=== PATIENT | male | born 1965 | race African-American/Black ===

== ENCOUNTER 2018-05-23 11:51 | Inpatient (IN) | payer OTHER ==
[2018-05-23 13:42] VITALS: BMI 22.2
--- NOTE | 2018-05-23 14:41 | HP ---
CIWA Score Nausea/Vomitin Muscle Tremors: 2 Anxiety: 2 Agitation: 2 Paroxysmal Sweats: 2 Orientation: 0-Oriented Tacttile Disturbances: 1-Very Mild Itch/Numbness Auditory Disturbances: 1-Very Mild Visual Disturbances: 0-None Headache: 2-Mild CIWA-Ar Total Score: 14 - Admission Criteria OASAS Guidelines: Admission for Medically Managed Detox: Requires at least one of the followin. CIWA greater than 12 2. Seizures within the past 24 hours 3. Delirium tremens within the past 24 hours 4. Hallucinations within the past 24 hours 5. Acute intervention needed for co occurring medical disorder 6. Acute intervention needed for co occurring psychiatric disorder 7. Severe withdrawal that cannot be handled at a lower level of care (continued vomiting, continued diarrhea, abnormal vital signs) requiring intravenous medication and/or fluids 8. Admission ROS S - HPI Chief Complaint: i need help detox from alcohol,cocaine and marijuana Allergies/Adverse Reactions: Allergies Allergy/AdvReac Type Severity Reaction Status Date / Time No Known Allergies Allergy Verified 05/23/18 13:21 History of Present Illness: this 53 years old male with alcohol,cocaine and marijuana dependence seeking detox,withdrawal symptom, last detox C 01/17/11 to 01/22/11 nicotine dependence 4 cigarette 4/day,do not want nicotine replacemant longest sobriety 8 years plan to go to rehab after detox weight loss left craniotomy surgery in 2016 did nit recall the facility etiology unknown low back pain sciatica right ,ambulation with cane bph Exam Limitations: No Limitations - Ebola screening Have you traveled outside of the country in the last 21 days: No (N) Have you had contact with anyone from an Ebola affected area: No Do you have a fever: No - Review of Systems Constitutional: Loss of Appetite, Malaise, Night Sweats, Changes in sleep, Weakness, Unintentional Wgt. Loss EENT: reports: Tearing, Nose Congestion, Other (s/p craniotomy left in 2016 etiology unknown) Respiratory: reports: No Symptoms reported Cardiac: reports: No Symptoms Reported GI: reports: Nausea, Poor Appetite, Abdominal cramping Musculoskeletal: reports: Back Pain, Muscle Pain Neuro: reports: Headache, Tremors Endocrine: reports: No Symptoms Reported Hematology: reports: No Symptoms Reported Psychiatric: reports: No Sypmtoms Reported, Judgement Intact, Mood/Affect Appropiate, Orientated x3 Other Systems: Reviewed and Negative Patient History - Patient Medical History Hx Anemia: No Hx Asthma: No Hx Chronic Obstructive Pulmonary Disease (COPD): No Hx Cancer: No Hx Cardiac Disorders: No Hx Congestive Heart Failure: No Hx Hypertension: No Hx Hypercholesterolemia: No Hx Pacemaker: No HX Cerebrovascular Accident: No Hx Seizures: No Hx Dementia: No Hx Diabetes: No Hx Gastrointestinal Disorders: No Hx Liver Disease: No Hx Genitourinary Disorders: No Hx Sexually Transmitted Disorders: No Hx Renal Disease (ESRD): No Hx Thyroid Disease: No Hx Human Immunodeficiency Virus (HIV): No (2017 last negative) Hx Hepatitis C: No Hx Depression: No Hx Suicide Attempt: No Hx Bipolar Disorder: No Hx Schizophrenia: No Other Medical History: no sucidal,no homicidal,lefr craniotomy in 2016,scitica right,ambulation wi - Patient Surgical History Hx Neurologic Surgery: Yes (left craniotomy in 2016,etiology) - PPD History Previous Implant?: Yes Documented Results: Negative w/o proof Implanted On Prior R Admission?: No PPD to be Administered?: Yes - Smoking Cessation Smoking history: Current every day smoker Have you smoked in the past 12 months: Yes Aproximately how many cigarettes per day: 4 Cigars Per Day: 0 Hx Chewing Tobacco Use: No Initiated information on smoking cessation: Yes 'Breaking Loose' booklet given: 05/23/18 - Substance & Tx. History Hx Alcohol Use: Yes Hx Substance Use: Yes Substance Use Type: Alcohol, Cocaine, Marijuana Hx Substance Use Treatment: Yes ([facility] 01/17/11 to 01/22/11) - Substances abused Alcohol Substance route: Oral Frequency: Daily Amount used: 3 pints of liqur/2 of 6 packs of 12 ozs of beer Age of first use: 16 Date of last use: 05/22/18 Marijuana/Hashish Substance route: Smoking Frequency: Daily Amount used: $50 Age of first use: 15 Date of last use: 05/16/18 Cocaine Substance route: Smoking Frequency: 1-3 times last 30 days Amount used: 50$ Age of first use: 33 Date of last use: 05/13/18 Family Disease History - Family Disease History Family History: Denies Admission Physical Exam BHS - Vital Signs Vital Signs: Vital Signs - 24 hr 05/23/18 05/23/18 13:31 14:26 Pulse Rate 82 82 Respiratory 18 18 Rate Blood Pressure 125/72 125/72 - Physical General Appearance: Yes: Moderate Distress, Tremorous, Irritable, Sweating, Anxious HEENTM: Yes: Normal ENT Inspection, CHAD, Pharynx Normal, Other (s/p left cranitomy in 2016) Respiratory: Yes: Lungs Clear, Normal Breath Sounds, No Respiratory Distress Neck: Yes: Within Normal Limits, Supple, Trachea in good position Breast: Yes: Within Normal Limits Cardiology: Yes: Within Normal Limits, Regular Rhythm, Regular Rate, S1, S2 Abdominal: Yes: Within Normal Limits, Normal Bowel Sounds, Flat, Soft Genitourinary: Yes: Within Normal Limits Back: Yes: Muscle Spasm Musculoskeletal: Yes: Back pain, Muscle Pain, Other (pain in the right leg and foot ambulation with cane) Extremities: Yes: Normal Range of Motion, Tremors Integumentary: Yes: Dry Lymphatic: Yes: Within Normal Limits - Diagnostic (1) Alcohol dependence with uncomplicated withdrawal Current Visit: Yes Status: Acute (2) Cannabis dependence Current Visit: Yes Status: Acute (3) Cocaine abuse Current Visit: Yes Status: Acute (4) History of craniotomy Current Visit: Yes Status: Acute (5) Low back pain Current Visit: Yes Status: Acute (6) Sciatica, right side Current Visit: Yes Status: Acute (7) Use of cane as ambulatory aid Current Visit: Yes Status: Acute (8) Weight loss Current Visit: Yes Status: Acute Cleared for Admission S - Detox or Rehab [facility] Level of Care: Medically Managed Detox Regimen/Protocol: Librium Breathalyzer - Breathalyzer Breathalyzer: 0 Urine Drug Screen - Test Device Lot number: [id number] Expiration date: 01/12/20 - Control Is test valid?: Yes - Results Drug screen NEGATIVE: No Urine drug screen results: THC-Marijuana, CARYN-Cocaine, BAR-Barbiturates, BZO- Benzodiazepines Inpatient Rehab Admission - Rehab Decision to Admit Inpatient rehab admission?: No
[2018-05-23] MEDS ORDERED: MENTHOL/PHENOL 1 EACH UD MM PRN (14:55)
[2018-05-23] MEDS ORDERED: IBUPROFEN 400 MG TABLET (FP) PO PRN (14:55)
[2018-05-23] MEDS ORDERED: MAG HYDROX/AL HYDROX/SIMETH 30 ML UNIT-DOSE CUP PO PRN (14:55)
[2018-05-23] MEDS ORDERED: MAGNESIUM CITRATE 300 ML BOTTLE PO PRN (14:55)
[2018-05-23] MEDS ORDERED: chlordiazePOXIDE HCL 25 MG CAPSULE PO PRN (14:55)
[2018-05-23] MEDS ORDERED: ACETAMINOPHEN 325 MG TABLET (FP) PO PRN (14:55)
[2018-05-23] MEDS ORDERED: hydrOXYzine PAMOATE 25 MG CAPSULE (FP) PO PRN (14:55)
[2018-05-23] MEDS ORDERED: BISMUTH SUBSALICYLATE 262 MG/15 ML BTL PO PRN (14:55)
[2018-05-23] MEDS ORDERED: MELATONIN 5 MG TABLETS PO PRN (14:55)
[2018-05-23] MEDS ORDERED: MAGNESIUM HYDROX 2400MG/30ML ORAL SUSPENSION 30 ML CUP PO PRN (14:55)
[2018-05-23 16:50] LABS: EPI CELLS 2.5 /HPF (0-5/HPF); URINE APPEARANCE CLOUDY; URINE BACTERIA 34.2 /hpf (NEGATIVE); URINE BILIRUBIN NEGATIVE (NEGATIVE); URINE CASTS 130 /hpf (0-8); URINE COLOR DK YELLOW; URINE GLUCOSE (UA) NEGATIVE (NEGATIVE); URINE KETONE TRACE (NEGATIVE); URINE LEUK ESTERASE 2+ (NEGATIVE); URINE NITRITE NEGATIVE (NEGATIVE); URINE PROTEIN NEGATIVE (NEGATIVE); URINE RBC 2 /hpf (0-4); URINE UROBILINOGEN 0.2 mg/dL (0.2-1.0); URINE WBC 88 /hpf (0-5)
[2018-05-23 17:01] LABS: HEMATOCRIT 30.4 % (35.4-49); HEMOGLOBIN 10.1 GM/dL (11.7-16.9); MCH 27.5 pg (25.7-33.7); MCHC 33.3 g/dl (32.0-35.9); MEAN CELL VOLUME 82.5 fl (80-96); MEAN PLT VOLUME 8.9 fl (7.5-11.1); PLATELET COUNT 268 K/MM3 (134-434); RBC 3.68 M/mm3 (4.00-5.60); RDW 15.6 % (11.9-15.9); WHITE BLOOD COUNT 5.8 K/mm3 (4.0-10.0)
[2018-05-23 17:20] LABS: ALBUMIN 3.2 g/dl (3.4-5.0); ALK PHOS 101 U/L (45-117); ANION GAP 6 MMOL/L (8-16); BILIRUBIN,TOTAL 0.8 mg/dL (0.2-1); BLOOD UREA NITROGEN 12 mg/dL (7-18); CALCIUM 9.1 mg/dL (8.5-10.1); CHLORIDE 108 mmol/L (98-107); CO2 27 mmol/L (21-32); CREATININE 0.7 mg/dL (0.55-1.3); GLUCOSE,RANDOM 105 mg/dL (74-106); POTASSIUM 4.3 mmol/L (3.5-5.1); SGOT/AST 18 U/L (15-37); SGPT/ALT 16 U/L (13-61); SODIUM 141 mmol/L (136-145); TOT PROT 7.7 g/dl (6.4-8.2)
[2018-05-23 17:52] LABS: SICKLE CELL SCREEN NEGATIVE (NEGATIVE)
[2018-05-23] MEDS: chlordiazePOXIDE HCL 25 MG CAPSULE PO SCH ×2 (18:01→22:08)
[2018-05-23] MEDS ORDERED: TAMSULOSIN HCL 0.4 MG CAP PO SCH (22:00)
[2018-05-23] MEDS: TAMSULOSIN HCL 0.4 MG CAP PO SCH (22:05)
[2018-05-23] MEDS: THIAMINE HCL 100 MG TABLET (FP) PO SCH (22:22)
[2018-05-24] MEDS: chlordiazePOXIDE HCL 25 MG CAPSULE PO SCH ×4 (05:12→23:15)
[2018-05-24] MEDS: ACETAMINOPHEN 325 MG TABLET (FP) PO PRN (05:13)
--- NOTE | 2018-05-24 09:11 | PN ---
S CIWA - CIWA Score Nausea/Vomitin Muscle Tremors: 2 Anxiety: 2 Agitation: 2 Paroxysmal Sweats: 1-Minimal Palms Moist Orientation: 0-Oriented Tacttile Disturbances: 1-Very Mild Itch/Numbness Auditory Disturbances: 1-Very Mild Visual Disturbances: 0-None Headache: 2-Mild CIWA-Ar Total Score: 13 BHS Progress Note (SOAP) Subjective: alert,irritable,anxious,interrupted sleep,tremor,pain in the back and right leg Objective: 05/24/18 10:47 Vital Signs Temperature 98.2 F 05/24/18 09:14 Pulse Rate 105 H 05/24/18 09:14 Respiratory Rate 16 05/24/18 09:14 Blood Pressure 147/87 05/24/18 09:14 O2 Sat by Pulse Oximetry (%) ekg nsr with sinus arrhythmia qt/qtc 388/424/ Laboratory Last Values WBC 5.8 K/mm3 (4.0-10.0) 05/23/18 14:45 RBC 3.68 M/mm3 (4.00-5.60) L 05/23/18 14:45 Hgb 10.1 GM/dL (11.7-16.9) L 05/23/18 14:45 Hct 30.4 % (35.4-49) L 05/23/18 14:45 MCV 82.5 fl (80-96) 05/23/18 14:45 MCH 27.5 pg (25.7-33.7) 05/23/18 14:45 MCHC 33.3 g/dl (32.0-35.9) 05/23/18 14:45 RDW 15.6 % (11.9-15.9) 05/23/18 14:45 Plt Count 268 K/MM3 (134-434) 05/23/18 14:45 MPV 8.9 fl (7.5-11.1) 05/23/18 14:45 Sickle Cell Screen Negative (NEGATIVE) 05/23/18 14:45 Sodium 141 mmol/L (136-145) 05/23/18 14:45 Potassium 4.3 mmol/L (3.5-5.1) 05/23/18 14:45 Chloride 108 mmol/L (98-107) H 05/23/18 14:45 Carbon Dioxide 27 mmol/L (21-32) 05/23/18 14:45 Anion Gap 6 MMOL/L (8-16) L 05/23/18 14:45 BUN 12 mg/dL (7-18) 05/23/18 14:45 Creatinine 0.7 mg/dL (0.55-1.3) 05/23/18 14:45 Creat Clearance w eGFR 117.08 (>60) 05/23/18 14:45 Random Glucose 105 mg/dL (74-106) 05/23/18 14:45 Calcium 9.1 mg/dL (8.5-10.1) 05/23/18 14:45 Total Bilirubin 0.8 mg/dL (0.2-1) 05/23/18 14:45 AST 18 U/L (15-37) 05/23/18 14:45 ALT 16 U/L (13-61) 05/23/18 14:45 Alkaline Phosphatase 101 U/L (45-117) 05/23/18 14:45 Total Protein 7.7 g/dl (6.4-8.2) 05/23/18 14:45 Albumin 3.2 g/dl (3.4-5.0) L 05/23/18 14:45 Urine Color Dk yellow 05/23/18 15:16 Urine Appearance Cloudy 05/23/18 15:16 Urine pH 5.0 (5.0-8.0) 05/23/18 15:16 Ur Specific [place] 1.036 (1.010-1.035) H 05/23/18 15:16 Urine Protein Negative (NEGATIVE) 05/23/18 15:16 Urine Glucose (UA) Negative (NEGATIVE) 05/23/18 15:16 Urine Ketones Trace (NEGATIVE) H 05/23/18 15:16 Urine Blood Negative (NEGATIVE) 05/23/18 15:16 Urine Nitrite Negative (NEGATIVE) 05/23/18 15:16 Urine Bilirubin Negative (NEGATIVE) 05/23/18 15:16 Urine Urobilinogen 0.2 mg/dL (0.2-1.0) 05/23/18 15:16 Ur Leukocyte Esterase 2+ (NEGATIVE) H 05/23/18 15:16 Urine WBC (Auto) 88 /hpf (0-5) 05/23/18 15:16 Urine RBC (Auto) 2 /hpf (0-4) 05/23/18 15:16 Urine Casts (Auto) 130 /hpf (0-8) 05/23/18 15:16 U Pathogenic Cast Auto Wbc cast (NEGATIVE) 05/23/18 15:16 U Epithel Cells (Auto) 2.5 /HPF (0-5/HPF) 05/23/18 15:16 Urine Bacteria (Auto) 34.2 /hpf (NEGATIVE) 05/23/18 15:16 Assessment: 05/24/18 10:49 withdrawal symptom Plan: continue detox,r/o uti,amoxicillin 500 mgs po tid for utiurine for c/s
--- NOTE | 2018-05-24 10:27 | EKG ---
Test Reason : Blood Pressure : / mmHG Vent. Rate : 072 BPM Atrial Rate : 072 BPM P-R Int : 156 ms QRS Dur : 094 ms QT Int : 388 ms P-R-T Axes : 075 055 058 degrees QTc Int : 424 ms NORMAL SINUS RHYTHM WITH SINUS ARRHYTHMIA MINIMAL VOLTAGE CRITERIA FOR LVH, MAY BE NORMAL VARIANT BORDERLINE ECG NO PREVIOUS ECGS AVAILABLE Confirmed by BRENT GOLDSTEIN, JUAREZ ([id number]) on 05/24/2018 10:26:56 AM Referred By: Confirmed By:JUAREZ KENNEDY MD
[2018-05-24] MEDS: IBUPROFEN 600 MG TABLET (FP) PO PRN ×2 (11:24→23:15)
[2018-05-24] MEDS: PRENATAL VITAMINS W/ FOLIC ACID TABLET (FP) PO SCH (11:24)
[2018-05-24] MEDS: AMOXICILLIN 500 MG CAPSULE (FP) PO SCH ×2 (14:55→23:14)
[2018-05-24] MEDS: METHOCARBAMOL 500 MG TABLET PO PRN (18:03)
[2018-05-24] MEDS: TAMSULOSIN HCL 0.4 MG CAP PO SCH (23:14)
[2018-05-24] MEDS: THIAMINE HCL 100 MG TABLET (FP) PO SCH (23:15)
[2018-05-25] MEDS: AMOXICILLIN 500 MG CAPSULE (FP) PO SCH ×3 (06:09→22:46)
[2018-05-25] MEDS: ACETAMINOPHEN 325 MG TABLET (FP) PO PRN (06:09)
[2018-05-25] MEDS: chlordiazePOXIDE HCL 25 MG CAPSULE PO SCH ×2 (06:11→11:07)
--- NOTE | 2018-05-25 10:52 | PN ---
S CIWA - CIWA Score Nausea/Vomitin Muscle Tremors: 2 Anxiety: 2 Agitation: 2 Paroxysmal Sweats: 2 Orientation: 0-Oriented Tacttile Disturbances: 2-Mild Itch/Numbness/Burn Auditory Disturbances: 0-None Visual Disturbances: 1-Very Mild Sensitivity Headache: 2-Mild CIWA-Ar Total Score: 15 BHS Progress Note (SOAP) Subjective: Chronic right leg/foot pain, back pain, joint pain, nausea Objective: 05/25/18 10:50 Vital Signs 05/25/18 05/25/18 05/25/18 03:30 06:18 10:15 Temperature 98.1 F 98.1 F Pulse Rate 83 87 Respiratory 18 18 18 Rate Blood Pressure 134/79 120/56 L Laboratory Last Values WBC 5.8 K/mm3 (4.0-10.0) 05/23/18 14:45 RBC 3.68 M/mm3 (4.00-5.60) L 05/23/18 14:45 Hgb 10.1 GM/dL (11.7-16.9) L 05/23/18 14:45 Hct 30.4 % (35.4-49) L 05/23/18 14:45 MCV 82.5 fl (80-96) 05/23/18 14:45 MCH 27.5 pg (25.7-33.7) 05/23/18 14:45 MCHC 33.3 g/dl (32.0-35.9) 05/23/18 14:45 RDW 15.6 % (11.9-15.9) 05/23/18 14:45 Plt Count 268 K/MM3 (134-434) 05/23/18 14:45 MPV 8.9 fl (7.5-11.1) 05/23/18 14:45 Sickle Cell Screen Negative (NEGATIVE) 05/23/18 14:45 Sodium 141 mmol/L (136-145) 05/23/18 14:45 Potassium 4.3 mmol/L (3.5-5.1) 05/23/18 14:45 Chloride 108 mmol/L (98-107) H 05/23/18 14:45 Carbon Dioxide 27 mmol/L (21-32) 05/23/18 14:45 Anion Gap 6 MMOL/L (8-16) L 05/23/18 14:45 BUN 12 mg/dL (7-18) 05/23/18 14:45 Creatinine 0.7 mg/dL (0.55-1.3) 05/23/18 14:45 Creat Clearance w eGFR 117.08 (>60) 05/23/18 14:45 Random Glucose 105 mg/dL (74-106) 05/23/18 14:45 Calcium 9.1 mg/dL (8.5-10.1) 05/23/18 14:45 Total Bilirubin 0.8 mg/dL (0.2-1) 05/23/18 14:45 AST 18 U/L (15-37) 05/23/18 14:45 ALT 16 U/L (13-61) 05/23/18 14:45 Alkaline Phosphatase 101 U/L (45-117) 05/23/18 14:45 Total Protein 7.7 g/dl (6.4-8.2) 05/23/18 14:45 Albumin 3.2 g/dl (3.4-5.0) L 05/23/18 14:45 Urine Color Dk yellow 05/23/18 15:16 Urine Appearance Cloudy 05/23/18 15:16 Urine pH 5.0 (5.0-8.0) 05/23/18 15:16 Ur Specific [place] 1.036 (1.010-1.035) H 05/23/18 15:16 Urine Protein Negative (NEGATIVE) 05/23/18 15:16 Urine Glucose (UA) Negative (NEGATIVE) 05/23/18 15:16 Urine Ketones Trace (NEGATIVE) H 05/23/18 15:16 Urine Blood Negative (NEGATIVE) 05/23/18 15:16 Urine Nitrite Negative (NEGATIVE) 05/23/18 15:16 Urine Bilirubin Negative (NEGATIVE) 05/23/18 15:16 Urine Urobilinogen 0.2 mg/dL (0.2-1.0) 05/23/18 15:16 Ur Leukocyte Esterase 2+ (NEGATIVE) H 05/23/18 15:16 Urine WBC (Auto) 88 /hpf (0-5) 05/23/18 15:16 Urine RBC (Auto) 2 /hpf (0-4) 05/23/18 15:16 Urine Casts (Auto) 130 /hpf (0-8) 05/23/18 15:16 U Pathogenic Cast Auto Wbc cast (NEGATIVE) 05/23/18 15:16 U Epithel Cells (Auto) 2.5 /HPF (0-5/HPF) 05/23/18 15:16 Urine Bacteria (Auto) 34.2 /hpf (NEGATIVE) 05/23/18 15:16 RPR Titer Nonreactive (NONREACTIVE) 05/23/18 14:45 Labs noted-treatment for UTI ongoing OA changes to hands Ambulatory with cane Assessment: 05/25/18 10:51 Withdrawal sx Plan: Continue detox Continue Amoxicillin
[2018-05-25] MEDS: IBUPROFEN 600 MG TABLET (FP) PO PRN (11:07)
[2018-05-25] MEDS: PRENATAL VITAMINS W/ FOLIC ACID TABLET (FP) PO SCH (11:08)
[2018-05-25] MEDS ORDERED: chlordiazePOXIDE HCL 10 MG CAPSULE PO PRN (17:00)
[2018-05-25] MEDS: chlordiazePOXIDE HCL 10 MG CAPSULE PO SCH ×2 (17:28→22:49)
[2018-05-25] MEDS: THIAMINE HCL 100 MG TABLET (FP) PO SCH (22:45)
[2018-05-25] MEDS: TAMSULOSIN HCL 0.4 MG CAP PO SCH (22:46)
[2018-05-26] MEDS: chlordiazePOXIDE HCL 10 MG CAPSULE PO SCH ×3 (06:47→18:02)
[2018-05-26] MEDS: AMOXICILLIN 500 MG CAPSULE (FP) PO SCH ×3 (06:48→22:08)
--- NOTE | 2018-05-26 10:24 | PN ---
[facility] Progress Note Note: PATIENT SEEN CONTINUES WITH ETOH DETOX. C/O CHRONIC JOINT PAIN AND RIGHT SIDED SCIATICA. Laboratory Tests 05/23/18 05/23/18 05/23/18 14:45 14:45 14:45 WBC 5.8 RBC 3.68 L Hgb 10.1 L Hct 30.4 L MCV 82.5 MCH 27.5 MCHC 33.3 RDW 15.6 Plt Count 268 MPV 8.9 Sickle Cell Screen Negative Sodium 141 Potassium 4.3 Chloride 108 H Carbon Dioxide 27 Anion Gap 6 L BUN 12 Creatinine 0.7 Creat Clearance w eGFR 117.08 Random Glucose 105 Calcium 9.1 Total Bilirubin 0.8 AST 18 ALT 16 Alkaline Phosphatase 101 Total Protein 7.7 Albumin 3.2 L Urine Color Urine Appearance Urine pH Ur Specific [place] Urine Protein Urine Glucose (UA) Urine Ketones Urine Blood Urine Nitrite Urine Bilirubin Urine Urobilinogen Ur Leukocyte Esterase Urine WBC (Auto) Urine RBC (Auto) Urine Casts (Auto) U Pathogenic Cast Auto U Epithel Cells (Auto) Urine Bacteria (Auto) RPR Titer Nonreactive 05/23/18 15:16 WBC RBC Hgb Hct MCV MCH MCHC RDW Plt Count MPV Sickle Cell Screen Sodium Potassium Chloride Carbon Dioxide Anion Gap BUN Creatinine Creat Clearance w eGFR Random Glucose Calcium Total Bilirubin AST ALT Alkaline Phosphatase Total Protein Albumin Urine Color Dk yellow Urine Appearance Cloudy Urine pH 5.0 Ur Specific [place] 1.036 H Urine Protein Negative Urine Glucose (UA) Negative Urine Ketones Trace H Urine Blood Negative Urine Nitrite Negative Urine Bilirubin Negative Urine Urobilinogen 0.2 Ur Leukocyte Esterase 2+ H Urine WBC (Auto) 88 Urine RBC (Auto) 2 Urine Casts (Auto) 130 U Pathogenic Cast Auto Wbc cast U Epithel Cells (Auto) 2.5 Urine Bacteria (Auto) 34.2 RPR Titer PE: ALERT AND ORIENTED X 3 SKIN WARM AND DRY CAR S1S2 RESP CTA BL EXT LEFT FOOT BUNION, NO EDEMA, NO TREMORS MILDLY ANXIOUS A/P: ETOH WITHDRAWAL SX CONTINUE DETOX FOR D/C TOMORROW TO HOME,PATIENT STATES HE DOES NOT WANT TO GO TO REHAB AT THIS TIME CONTINUE TO MONITOR CLINICALLY
[2018-05-26] MEDS: PRENATAL VITAMINS W/ FOLIC ACID TABLET (FP) PO SCH (10:41)
[2018-05-26] MEDS: TAMSULOSIN HCL 0.4 MG CAP PO SCH (22:09)
[2018-05-26] MEDS: THIAMINE HCL 100 MG TABLET (FP) PO SCH (22:09)
[2018-05-26] MEDS: IBUPROFEN 600 MG TABLET (FP) PO PRN (22:11)
[2018-05-27] MEDS: chlordiazePOXIDE HCL 10 MG CAPSULE PO SCH (04:53)
[2018-05-27] MEDS: IBUPROFEN 600 MG TABLET (FP) PO PRN (04:56)
[2018-05-27] MEDS: AMOXICILLIN 500 MG CAPSULE (FP) PO SCH (06:13)
--- NOTE | 2018-05-27 08:38 | DS ---
[facility] Detox Discharge Summary Admission Date: 05/23/18 Discharge Date: 05/27/18 - History Present History: Alcohol Dependence, Cannabis Dependence, Cocaine Dependence - Physical Exam Results Vital Signs: Vital Signs Temperature 98.1 F 05/27/18 03:00 Pulse Rate 122 H 05/27/18 03:00 Respiratory Rate 18 05/27/18 03:00 Blood Pressure 132/70 05/27/18 03:00 O2 Sat by Pulse Oximetry (%) - Treatment Hospital Course: Detox Protocol Followed, Detoxed Safely, Responded well, Discharged Condition Good, Rehab Referral Accepted - Medication Discharge Medications: Ambulatory Orders Naproxen [Naprosyn -] 500 mg PO BID 05/23/18 Tamsulosin HCl 1 cap PO HS #14 capsule 05/26/18 - Diagnosis (1) Alcohol dependence with uncomplicated withdrawal Current Visit: Yes Status: Chronic (2) Cannabis dependence Current Visit: Yes Status: Chronic (3) Cocaine abuse Current Visit: Yes Status: Chronic (4) History of craniotomy Current Visit: No Status: Chronic (5) Low back pain Current Visit: Yes Status: Acute (6) Sciatica, right side Current Visit: Yes Status: Acute (7) Use of cane as ambulatory aid Current Visit: Yes Status: Acute (8) Weight loss Current Visit: Yes Status: Acute - AMA Did Patient Leave Against Medical Advice: No ([facility])
[2018-05-27 09:39] VITALS: BP 141/70; PULSE 110; TEMP 96.7
[2018-05-27] MEDS: PRENATAL VITAMINS W/ FOLIC ACID TABLET (FP) PO SCH (10:08)
[2018-05-27] MEDS: METHOCARBAMOL 500 MG TABLET PO PRN (10:35)
== END 2018-05-27 12:10 | disposition other institution (70) | DRG 774 ==
LOC: YASAS 11:51 → Y6N 15:01
PROVIDERS: ADMIT Surgery; ATTEND Surgery
PROC: HZ2ZZZZ Detoxification Services for Substance Abuse Treatment (ICD-10-PCS; principal; 2018-05-23)
DX: F10.230 Alcohol dependence with withdrawal, uncomplicated (principal); F14.20 Cocaine dependence, uncomplicated; F12.20 Cannabis dependence, uncomplicated; F17.210 Nicotine dependence, cigarettes, uncomplicated; M54.41 Lumbago with sciatica, right side; R63.4 Abnormal weight loss; Z68.22 Body mass index [BMI] 22.0-22.9, adult; R26.89 Other abnormalities of gait and mobility; Z99.89 Dependence on other enabling machines and devices; Z98.890 Other specified postprocedural states; Z59.0 Homelessness
CPT/HCPCS: 36415; 80053; 81003; 85027; 85660; 86593; 93005; 93010

== ENCOUNTER 2018-05-27 12:23 | Inpatient (IN) | payer OTHER ==
[2018-05-27] MEDS ORDERED: MAGNESIUM HYDROX 2400MG/30ML ORAL SUSPENSION 30 ML CUP PO PRN (12:45)
[2018-05-27] MEDS ORDERED: MAGNESIUM CITRATE 300 ML BOTTLE PO PRN (12:45)
[2018-05-27] MEDS ORDERED: MAG HYDROX/AL HYDROX/SIMETH 30 ML UNIT-DOSE CUP PO PRN (12:45)
[2018-05-27] MEDS ORDERED: LOPERAMIDE HCL 2 MG CAPSULE PO PRN (12:45)
[2018-05-27] MEDS ORDERED: guaiFENesin 200 MG/10 ML 10 ML UNIT-DOSE CUPS PO PRN (12:45)
[2018-05-27] MEDS ORDERED: P-EPHED 60MG/TRIPROLIDI 2.5MG TABLET PO PRN (12:45)
[2018-05-27] MEDS ORDERED: IBUPROFEN 400 MG TABLET (FP) PO PRN (12:45)
[2018-05-27] MEDS ORDERED: MENTHOL/PHENOL 1 EACH UD MM PRN (12:45)
--- NOTE | 2018-05-27 12:54 | HP ---
[facility]STEIN Rehab Assess/Revision - Admission History Admitted to Rehab from: [facility] Date of Admission to Rehab: 05/27/2018 - Vital signs Vital Signs: NOTED; STABLE. - Findings Detox History & Physical reviewed: Yes Concur with findings: Yes Comments/Additional Findings: PATIENT'S MEDICAL / MEDICATION HISTORY REVIEWED PRIOR TO DISCHARGE FROM DETOX UNIT. ANTIBIOTIC (AMOXICILLIN) THAT WAS STARTED FOR POSSIBLE UTI WHILE PATIENT WAS ADMITTED FOR DETOX TO BE CONTINUED IN REHAB. PATIENT WAS DISCHARGED FROM DETOX UNIT TO BE TAKEN OVER TO REHAB UNIT IN STABLE MEDICAL CONDITION. Inpatient Rehab Admission - Rehab Decision to Admit Inpatient rehab admission?: Yes - Initial Determination Are CD services needed?: Yes Free of communicable disease: Yes Not in need of hospitalization: Yes - Rehab Admission Criteria Previous failed treatment: Yes Poor recovery environment: Yes Comorbidities: Yes Lacks judgement: No Patient is meeting Inpatient Rehab admission criteria:: Yes
[2018-05-27] MEDS: AMOXICILLIN 500 MG CAPSULE (FP) PO SCH ×2 (14:17→21:34)
[2018-05-27] MEDS: THIAMINE HCL 100 MG TABLET (FP) PO SCH (21:33)
[2018-05-27] MEDS ORDERED: MELATONIN 5 MG TABLETS PO PRN (22:00)
[2018-05-28] MEDS ORDERED: NAPROXEN 500 MG TABLET (FP) PO ONE (05:57)
[2018-05-28] MEDS: AMOXICILLIN 500 MG CAPSULE (FP) PO SCH ×3 (06:16→21:03)
[2018-05-28] MEDS: NAPROXEN 500 MG TABLET (FP) PO SCH ×2 (06:16→17:36)
[2018-05-28] MEDS: TAMSULOSIN HCL 0.4 MG CAP PO SCH (08:54)
[2018-05-28] MEDS: PRENATAL VITAMINS W/ FOLIC ACID TABLET (FP) PO SCH (09:54)
[2018-05-28] MEDS ORDERED: NAPROXEN 500 MG TABLET (FP) PO SCH (10:00)
--- NOTE | 2018-05-28 13:35 | PN ---
S Progress Note (SOAP) Subjective: c/o bilateral joint pain, shoulders, knees, toes. PMHx of arthritis, on Naprosyn Objective: 05/28/18 13:33 Limited ROM bilateral shoulders, right knee with slight swelling. No swelling or limited ROM at ankles. Using cane to ambulate, slowly, able to bear weight. Vital Signs Period Temp Pulse Resp BP Sys/Raza Pulse Ox Last 24 Hr 98.2 F 102 18-20 126/70 Assessment: 05/28/18 13:34 osteoarthritis Plan: Encouraged client to take naprosyn as ordered.
--- NOTE | 2018-05-28 13:36 | PN ---
[facility] Progress Note Note: Client with difficulty eating. Poor dentition. Ensure supplementation ordered.
[2018-05-28] MEDS: THIAMINE HCL 100 MG TABLET (FP) PO SCH (21:03)
[2018-05-28] MEDS: ACETAMINOPHEN 325 MG TABLET (FP) PO PRN (21:04)
[2018-05-29] MEDS: ACETAMINOPHEN 325 MG TABLET (FP) PO PRN ×2 (04:33→21:16)
[2018-05-29] MEDS: NAPROXEN 500 MG TABLET (FP) PO SCH ×2 (05:44→17:41)
[2018-05-29] MEDS: AMOXICILLIN 500 MG CAPSULE (FP) PO SCH ×3 (05:44→21:15)
[2018-05-29] MEDS: TAMSULOSIN HCL 0.4 MG CAP PO SCH (07:35)
[2018-05-29] MEDS: PRENATAL VITAMINS W/ FOLIC ACID TABLET (FP) PO SCH (09:35)
--- NOTE | 2018-05-29 13:35 | PN ---
S Progress Note Note: Now c/o neck and shoulder pain when lying in bed. Uses two pillows. PMX of craniotomy left side and osteoarthritis. Full neck ROM without pain, able to raise shoulders without pain. Client agreed to taking tylenol as needed before bedtime and sleeping medication. Will continue to monitor.
[2018-05-29] MEDS: THIAMINE HCL 100 MG TABLET (FP) PO SCH (21:15)
[2018-05-30] MEDS: AMOXICILLIN 500 MG CAPSULE (FP) PO SCH ×3 (06:01→21:45)
[2018-05-30] MEDS: NAPROXEN 500 MG TABLET (FP) PO SCH ×2 (06:01→17:04)
[2018-05-30] MEDS: TAMSULOSIN HCL 0.4 MG CAP PO SCH (07:34)
[2018-05-30] MEDS: PRENATAL VITAMINS W/ FOLIC ACID TABLET (FP) PO SCH (09:44)
[2018-05-30] MEDS: THIAMINE HCL 100 MG TABLET (FP) PO SCH (21:45)
[2018-05-30] MEDS: ACETAMINOPHEN 325 MG TABLET (FP) PO PRN (21:46)
[2018-05-31] MEDS: NAPROXEN 500 MG TABLET (FP) PO SCH ×2 (06:18→17:33)
[2018-05-31] MEDS: AMOXICILLIN 500 MG CAPSULE (FP) PO SCH ×3 (06:18→21:23)
[2018-05-31] MEDS: TAMSULOSIN HCL 0.4 MG CAP PO SCH (07:51)
[2018-05-31] MEDS: PRENATAL VITAMINS W/ FOLIC ACID TABLET (FP) PO SCH (10:00)
--- NOTE | 2018-05-31 16:09 | PN ---
[facility] Progress Note Note: PATIENT C/O CHRONIC DISCOMFORT TO FEET DUE TO OA AND RIGHT LEG SHON PLACEMENT. PATIENT CURRENTLY TREATED WITH NAPROSYN TO PAIN RELIEF. Vital Signs Temperature 98.7 F 05/31/18 08:08 Pulse Rate 112 H 05/31/18 08:08 Respiratory Rate 20 05/31/18 08:08 Blood Pressure 112/82 05/31/18 08:08 O2 Sat by Pulse Oximetry (%) PE: ALERT AND ORIENTED X 3 SKIN WARM AND DRY EXT NO EDEMA OR REDNESS, AMB WITH CANE, + MILD PLANTAR TENDERNESS TO BOTH FEET A/P: FOOT DISCOMFORT-CHRONIC- DUE TO OA WILL ORDER EPSOM SALT SOAK BID CONTINUE NAPROSYN MONITOR CLINICALLY
[2018-05-31] MEDS: THIAMINE HCL 100 MG TABLET (FP) PO SCH (21:23)
[2018-05-31] MEDS: ACETAMINOPHEN 325 MG TABLET (FP) PO PRN (21:24)
[2018-05-31] MEDS: MAGNESIUM SULFATE 16 OZ CRYSTALS TP SCH (21:25)
[2018-05-31] MEDS ORDERED: PT OWN MED DRAWER 7, Y5N ONE (21:58)
[2018-06-01] MEDS: NAPROXEN 500 MG TABLET (FP) PO SCH ×2 (06:11→19:50)
[2018-06-01] MEDS: AMOXICILLIN 500 MG CAPSULE (FP) PO SCH (06:11)
[2018-06-01] MEDS: TAMSULOSIN HCL 0.4 MG CAP PO SCH (07:43)
[2018-06-01] MEDS ORDERED: PT OWN MED DRAWER 7, Y5N ONE (08:48)
[2018-06-01] MEDS: PRENATAL VITAMINS W/ FOLIC ACID TABLET (FP) PO SCH (09:54)
[2018-06-01] MEDS: MAGNESIUM SULFATE 16 OZ CRYSTALS TP SCH ×2 (09:55→21:46)
[2018-06-01] MEDS: ACETAMINOPHEN 325 MG TABLET (FP) PO PRN ×2 (14:00→21:45)
[2018-06-01] MEDS: THIAMINE HCL 100 MG TABLET (FP) PO SCH (21:45)
[2018-06-02] MEDS: ACETAMINOPHEN 325 MG TABLET (FP) PO PRN (04:13)
[2018-06-02] MEDS: NAPROXEN 500 MG TABLET (FP) PO SCH ×2 (06:28→19:26)
[2018-06-02] MEDS: TAMSULOSIN HCL 0.4 MG CAP PO SCH (07:43)
[2018-06-02] MEDS: MAGNESIUM SULFATE 16 OZ CRYSTALS TP SCH ×2 (10:26→21:50)
[2018-06-02] MEDS: PRENATAL VITAMINS W/ FOLIC ACID TABLET (FP) PO SCH (10:26)
[2018-06-02] MEDS: LIDOCAINE 5% TOPICAL PATCH TP SCH (16:16)
[2018-06-02] MEDS: LIDOCAINE PATCH REMOVAL MC SCH (21:42)
[2018-06-02] MEDS: THIAMINE HCL 100 MG TABLET (FP) PO SCH (21:42)
[2018-06-03] MEDS: ACETAMINOPHEN 325 MG TABLET (FP) PO PRN ×2 (02:15→21:41)
[2018-06-03] MEDS: NAPROXEN 500 MG TABLET (FP) PO SCH ×2 (06:22→19:39)
[2018-06-03] MEDS: TAMSULOSIN HCL 0.4 MG CAP PO SCH (07:33)
[2018-06-03] MEDS: LIDOCAINE 5% TOPICAL PATCH TP SCH (10:23)
[2018-06-03] MEDS: PRENATAL VITAMINS W/ FOLIC ACID TABLET (FP) PO SCH (10:23)
[2018-06-03] MEDS: MAGNESIUM SULFATE 16 OZ CRYSTALS TP SCH ×2 (10:24→21:56)
[2018-06-03] MEDS: THIAMINE HCL 100 MG TABLET (FP) PO SCH (21:41)
[2018-06-03] MEDS: LIDOCAINE PATCH REMOVAL MC SCH (21:56)
[2018-06-04] MEDS: ACETAMINOPHEN 325 MG TABLET (FP) PO PRN (02:38)
[2018-06-04] MEDS: NAPROXEN 500 MG TABLET (FP) PO SCH ×2 (05:44→19:41)
[2018-06-04] MEDS: TAMSULOSIN HCL 0.4 MG CAP PO SCH (07:40)
[2018-06-04] MEDS: LIDOCAINE 5% TOPICAL PATCH TP SCH (10:50)
[2018-06-04] MEDS: PRENATAL VITAMINS W/ FOLIC ACID TABLET (FP) PO SCH (10:50)
[2018-06-04] MEDS: MAGNESIUM SULFATE 16 OZ CRYSTALS TP SCH ×2 (10:52→21:23)
[2018-06-04] MEDS: LIDOCAINE PATCH REMOVAL MC SCH (21:23)
[2018-06-04] MEDS: THIAMINE HCL 100 MG TABLET (FP) PO SCH (21:23)
[2018-06-04] MEDS: GABAPENTIN 100 MG CAPSULE (FP) PO SCH (21:24)
[2018-06-05] MEDS: NAPROXEN 500 MG TABLET (FP) PO SCH ×2 (05:54→18:37)
[2018-06-05] MEDS: TAMSULOSIN HCL 0.4 MG CAP PO SCH (08:05)
[2018-06-05] MEDS: PRENATAL VITAMINS W/ FOLIC ACID TABLET (FP) PO SCH (10:07)
[2018-06-05] MEDS: GABAPENTIN 100 MG CAPSULE (FP) PO SCH (10:07)
[2018-06-05] MEDS: MAGNESIUM SULFATE 16 OZ CRYSTALS TP SCH ×2 (10:09→21:49)
[2018-06-05] MEDS: LIDOCAINE 5% TOPICAL PATCH TP SCH (10:10)
[2018-06-05] MEDS: LIDOCAINE PATCH REMOVAL MC SCH (21:49)
[2018-06-05] MEDS: THIAMINE HCL 100 MG TABLET (FP) PO SCH (21:49)
[2018-06-06] MEDS: NAPROXEN 500 MG TABLET (FP) PO SCH (06:16)
[2018-06-06 06:49] VITALS: BP 128/75; PULSE 110; TEMP 98.1
[2018-06-06] MEDS: TAMSULOSIN HCL 0.4 MG CAP PO SCH (07:37)
--- NOTE | 2018-06-06 08:20 | PN ---
S Progress Note (SOAP) Subjective: Patient is discharged today. Objective: 06/06/18 08:13 Vital Signs (72 hours) 06/04/18 06/04/18 06/05/18 00:30 06:51 00:30 Temperature 98.5 F Pulse Rate 102 H Respiratory 18 20 18 Rate Blood Pressure 141/72 06/05/18 06/06/18 06/06/18 06:35 03:30 06:48 Temperature 98.2 F 98.1 F Pulse Rate 108 H 110 H Respiratory 20 18 20 Rate Blood Pressure 140/77 128/75 06/06/18 08:13 A+O x3. Difficulty speaking and expressing thoughts, but that is his baseline related to head injury many years ago. Lungs clear, Hear sound regular, abdomen soft, non-tender, non-distended. Medically stable for discharge. 06/06/18 08:31 Assessment: Medically stable for discharge Diagnoses: Cocaine abuse, chronic Lower back pain Sciatica ETOH abuse, chronic Cannabis abuse, Chronic 0 Plan: After care at [facility], client will make appointment with PCP, does not need any home medications renewed.
== END 2018-06-06 09:23 | disposition home or self-care (01) | DRG 772 ==
LOC: YASAS 12:23 → Y3W 12:24
PROVIDERS: ADMIT Neuromusculoskeletal Medicine & OMM; ATTEND Neuromusculoskeletal Medicine & OMM
PROC: HZ42ZZZ Group Counseling for Substance Abuse Treatment, Cognitive-Behavioral (ICD-10-PCS; principal; 2018-05-27)
DX: F10.20 Alcohol dependence, uncomplicated (principal); F14.20 Cocaine dependence, uncomplicated; F12.20 Cannabis dependence, uncomplicated; F17.210 Nicotine dependence, cigarettes, uncomplicated; M54.41 Lumbago with sciatica, right side; M19.012 Primary osteoarthritis, left shoulder; M19.011 Primary osteoarthritis, right shoulder; M17.0 Bilateral primary osteoarthritis of knee; M19.072 Primary osteoarthritis, left ankle and foot; M19.071 Primary osteoarthritis, right ankle and foot; R26.89 Other abnormalities of gait and mobility; Z99.89 Dependence on other enabling machines and devices; Z98.890 Other specified postprocedural states; Z59.0 Homelessness